=== PATIENT | male | born 1945 | race Hispanic/Latino ===

== ENCOUNTER 2023-06-12 21:39 | Emergency (ER) | payer OTHER ==
[~2023-06-12] VITALS: Ht 170.2 cm; Wt 102.1 kg
[2023-06-12 22:03] LABS: INFLUENZA TYPE B Negative For Type B (NEGATIVE)
[2023-06-12 22:09] LABS: INFLUENZA TYPE A Positive For Type A (NEGATIVE)
[2023-06-12 22:18] LABS: SARS-CoV-2, RNA, NAAT POSITIVE SARS CoV-2 (NEGATIVE)
[2023-06-12] MEDS ORDERED: OSEL75 PO (23:42)
[2023-06-12] MEDS ORDERED: BENZ200C53 PO (23:42)
[2023-06-13 00:13] VITALS: BP 148/68; PULSE 78; RESP 16; O2SAT 100
== END 2023-06-13 00:21 | disposition home or self-care (01) ==
LOC: EDH 21:39
DX: U07.1 COVID-19 (principal); J10.1 Influenza due to other identified influenza virus with other respiratory manifestations; I12.9 Hypertensive chronic kidney disease with stage 1 through stage 4 chronic kidney disease, or unspecified chronic kidney disease; E11.22 Type 2 diabetes mellitus with diabetic chronic kidney disease; N18.9 Chronic kidney disease, unspecified; Z99.2 Dependence on renal dialysis
CPT/HCPCS: 99284; 87804 ×2; 87635; 71045; C9803